=== PATIENT | male | born 1985 | race Caucasian/White ===

== ENCOUNTER 2023-08-19 11:06 | Outpatient (CLI) | payer BC ==
[2023-08-19 12:56] LABS: Hematocrit 49.8 % (38.8-50.0); Hemoglobin 15.9 g/dL (13.5-17.5); Mean Corpuscular HGB CONC 31.9 g/dL (32.0-36.0); Mean Corpuscular Hemoglobin 25.9 pg (27.0-33.0); Mean Corpuscular Volume 81.2 fl (81.2-95.1); Mean Platelet Volume 9.3 fl (7.4-10.4); Platelet Count 301 10x3/uL (150-450); RBC Distribution Width 13.3 % (11.5-14.5); Red Blood Cell (RBC) Count 6.13 10x6/uL (4.32-5.72); White Blood Cell (WBC) Count 8.9 10x3/uL (3.5-10.5)
[2023-08-19 13:40] LABS: Anion Gap 14 mmol/L (10-20); BUN (Urea Nitrogen) 11 mg/dL (8.9-20.6); Calc. Creatinine Clearance 0 mL/min (70-130); Calcium 9.3 mg/dL (7.8-10.44); Carbon Dioxide 29 mmol/L (22-29); Chloride 102 mmol/L (98-107); Estimated GFR 113; Glucose 127 mg/dL (70-105); Potassium 4.5 mmol/L (3.5-5.1); Sodium 140 mmol/L (136-145)
== END 2023-08-19 11:07 | disposition home or self-care (01) ==
LOC: CSHLAB 11:06
PROVIDERS: ATTEND Surgery
DX: Z01.818 Encounter for other preprocedural examination (principal)
CPT/HCPCS: 80048; 85027; 93005; 93010

== ENCOUNTER 2023-08-22 09:13 | Day surgery (SDC) | payer BC ==
[2023-08-19 12:29] VITALS: BMI 54.7
[2023-08-22] MEDS ORDERED: Bupivacaine PF 0.5% 30 ML VIAL ONE (09:21)
[2023-08-22] MEDS ORDERED: EPINEPHrine 1 MG/ML VIAL ONE (09:21)
[2023-08-22] MEDS ORDERED: Ondansetron PF 4 MG/2 ML Vial ONE (09:36)
[2023-08-22] MEDS ORDERED: Rocuronium Bromide 10 MG/ML (10ML VIAL) ONE (09:36)
[2023-08-22] MEDS ORDERED: Dexamethasone 20 MG/5 ML VIAL ONE (09:36)
[2023-08-22] MEDS ORDERED: Ketorolac Tromethamine 30 MG/ML VIAL ONE ×2 (09:36→09:37)
[2023-08-22] MEDS ORDERED: Midazolam HCl 2 mg/2 ml Vial ONE (09:37)
[2023-08-22] MEDS ORDERED: PROPOFOL 20 ML ONE ×2 (09:37→10:29)
[2023-08-22] MEDS ORDERED: fentaNYL 50 mcg/mL 1 mL Vial ONE ×5 (09:37→11:31)
[2023-08-22] MEDS ORDERED: ceFOXitin 1 GM VIAL ONE ×2 (09:45→09:46)
[2023-08-22] MEDS ORDERED: Acetaminophen 325 MG TAB PO PRN (11:10)
[2023-08-22] MEDS ORDERED: HYDROcodone/Acetaminophen 5/325 mg Tablet PO PRN ×2 (11:10)
[2023-08-22] MEDS ORDERED: Glycopyrrolate 0.2 MG/ML 5 ML SYRINGE ONE (13:06)
== END 2023-08-22 13:10 | disposition home or self-care (01) ==
LOC: CSHSDC 09:13
PROVIDERS: ATTEND Surgery
PROC: 0DBQ8ZZ Excision of Anus, Via Natural or Artificial Opening Endoscopic (ICD-10-PCS; principal; 2023-08-22)
DX: K60.3 Anal fistula (principal); E11.9 Type 2 diabetes mellitus without complications; E78.5 Hyperlipidemia, unspecified; K21.9 Gastro-esophageal reflux disease without esophagitis; I10 Essential (primary) hypertension; E66.01 Morbid (severe) obesity due to excess calories; Z88.8 Allergy status to other drugs, medicaments and biological substances; Z68.43 Body mass index [BMI] 50.0-59.9, adult; Z79.84 Long term (current) use of oral hypoglycemic drugs; Z79.899 Other long term (current) drug therapy
CPT/HCPCS: J0171; J0694; J1100; J1885; J2250; J2405; J2704; J3010; S0020

== ENCOUNTER 2024-03-31 10:53 | Outpatient (CLI) | payer BC ==
[2024-03-31 12:50] LABS: Anion Gap 13 mmol/L (10-20); BUN (Urea Nitrogen) 14 mg/dL (8.9-20.6); Calc. Creatinine Clearance 0 mL/min (70-130); Calcium 9.5 mg/dL (7.8-10.44); Carbon Dioxide 26 mmol/L (22-29); Chloride 104 mmol/L (98-107); Estimated GFR 110; Glucose 107 mg/dL (70-105); Potassium 4.5 mmol/L (3.5-5.1); Sodium 138 mmol/L (136-145)
== END 2024-03-31 10:54 | disposition home or self-care (01) ==
LOC: CSHLAB 10:53
PROVIDERS: ATTEND Surgery
DX: Z01.818 Encounter for other preprocedural examination (principal); K60.3 Anal fistula
CPT/HCPCS: 80048; 93005; 93010

== ENCOUNTER 2024-04-08 05:57 | Day surgery (SDC) | payer BC ==
[2024-03-31 11:42] VITALS: BMI 56.2
[2024-04-08] MEDS ORDERED: Bupivacaine PF 0.5% 30 ML VIAL ONE (06:55)
[2024-04-08] MEDS ORDERED: EPINEPHrine 1 MG/ML VIAL ONE (06:55)
[2024-04-08] MEDS ORDERED: ceFOXitin 1 GM VIAL ONE (07:18)
[2024-04-08] MEDS ORDERED: PROPOFOL 40 ML ONE (07:23)
[2024-04-08] MEDS ORDERED: fentaNYL 50 mcg/mL 1 mL Vial ONE ×2 (07:24→08:04)
[2024-04-08] MEDS ORDERED: Ondansetron PF 4 MG/2 ML Vial ONE (07:27)
[2024-04-08] MEDS ORDERED: Rocuronium Bromide 10 MG/ML (10ML VIAL) ONE (07:27)
[2024-04-08] MEDS ORDERED: Lidocaine 2% PF 5 ML VIAL ONE (07:27)
[2024-04-08] MEDS ORDERED: Dexamethasone 4 mg/ml Vial ONE (07:27)
[2024-04-08] MEDS ORDERED: SUCCINYLCHOLINE/SOD CL,ISO/PF 200 MG/10 ML SYRINGE FS ONE (07:27)
[2024-04-08] MEDS ORDERED: ePHEDrine Sulfate 50 MG/10 ML VIAL ONE (07:58)
[2024-04-08] MEDS ORDERED: PROPOFOL 20 ML ONE (08:06)
[2024-04-08] MEDS ORDERED: PHENYLEPHRINE-NS 100 MCG/ML 10 ML SYRINGE ONE (08:07)
[2024-04-08] MEDS ORDERED: Ketorolac Tromethamine 30 MG (1 mL) VIAL ONE (08:16)
[2024-04-08] MEDS ORDERED: HYDROcodone/Acetaminophen 5/325 mg Tablet PO PRN (08:29)
[2024-04-08] MEDS ORDERED: HYDROcodone/Acetaminophen 5/325 mg Tablet ONE (09:15)
== END 2024-04-08 10:20 | disposition home or self-care (01) ==
LOC: CSHSDC 05:57
PROVIDERS: ATTEND Surgery
DX: K60.3 Anal fistula (principal); K64.1 Second degree hemorrhoids; K64.2 Third degree hemorrhoids; E66.01 Morbid (severe) obesity due to excess calories; E11.9 Type 2 diabetes mellitus without complications; I10 Essential (primary) hypertension; Z68.43 Body mass index [BMI] 50.0-59.9, adult; Z79.899 Other long term (current) drug therapy; Z88.8 Allergy status to other drugs, medicaments and biological substances
CPT/HCPCS: J0171; J0665; J0694; J1100; J1885; J2001; J2405; J2704; J3010